=== PATIENT | female | born 1990 | race Caucasian/White ===

== ENCOUNTER 2020-02-14 10:06 | Inpatient (IN) ==
[2020-02-14] MEDS ORDERED: Buffered Lidocaine 1% SYRIN 1 ml INTRADERM ONE (10:17)
[2020-02-14] MEDS ORDERED: Lactated Ringers 1000 ml BAG 1,000 ML IV ONE (10:17)
[2020-02-14] MEDS ORDERED: Carboprost Tromethamine 250 mcg 1 ml VIAL ONE (10:54)
[2020-02-14] MEDS ORDERED: Oxytocin in LR 20 UNITS/1,000 ML BAG IVPB ONE (10:54)
[2020-02-14] MEDS ORDERED: Lactated Ringers 1000 ml BAG 1,000 ML IV SCH ×2 (11:00→12:00)
[2020-02-14] MEDS ORDERED: Glycerin ADULT 2.4 gm SUPP PR PRN (11:45)
[2020-02-14] MEDS ORDERED: Oxytocin in LR 20 UNITS/1,000 ML BAG IVPB SCH (12:00)
[2020-02-14 12:27] LABS: Hematocrit 40 % (35-47); Hemoglobin 13.4 g/dL (12.0-16.0); Mean Corpuscular HGB Conc 34 g/dL (31-36); Mean Corpuscular Hemoglobin 30 pg (27-31); Mean Corpuscular Volume 90 fL (80-97); Mean Platelet Volume 11.7 fL (7.4-10.4); Platelet Count 263 10^3/uL (150-450); Red Cell Distribution Width 14 % (10-15); White Blood Count 28.5 10^3/uL (3.5-10.8)
[2020-02-14] MEDS: Witch Hazel PAD JAR TOPICAL PRN (13:22)
[2020-02-14] MEDS: Dibucaine 1% OINT 28.35 GM TUBE PR PRN (13:22)
[2020-02-14 13:36] LABS: ABS Lymphocytes 1.2 10^3/ul (1.0-4.8); ABS Monocytes 1.3 10^3/ul (0-0.8); Lymphocyte % 4.3 %
[2020-02-14] MEDS ORDERED: Lidocaine 1% VIAL 10 MG/ML VIAL ONE (14:49)
[2020-02-14 21:26] LABS: Urine Benzodiazepine Screen None Detected (None Detect); Urine Cannabinoids Screen None Detected (None Detect); Urine Opiates Screen None Detected (None Detect)
[2020-02-15 07:40] LABS: ABS Basophils 0.1 10^3/ul (0-0.2); ABS Lymphocytes 2.3 10^3/ul (1.0-4.8); ABS Monocytes 1.2 10^3/ul (0-0.8); ABS Neutrophils 12.1 10^3/ul (1.5-7.7); Eosinophil % 0.1 %; Hematocrit 31 % (35-47); Hemoglobin 10.5 g/dL (12.0-16.0); Lymphocyte % 14.8 %; Mean Corpuscular HGB Conc 35 g/dL (31-36); Mean Corpuscular Hemoglobin 31 pg (27-31); Mean Corpuscular Volume 90 fL (80-97); Mean Platelet Volume 10.6 fL (7.4-10.4); Platelet Count 175 10^3/uL (150-450); Red Blood Count 3.38 10^6 /uL (3.70-4.87); Red Cell Distribution Width 14 % (10-15); White Blood Count 15.6 10^3/uL (3.5-10.8)
[2020-02-15] MEDS: Dibucaine 1% OINT 28.35 GM TUBE PR PRN (19:42)
[2020-02-15] MEDS: Witch Hazel PAD JAR TOPICAL PRN (19:42)
[2020-02-16] MEDS ORDERED: Cyclobenzaprine 5 mg TAB (NF) PO PRN (19:07)
[2020-02-16] MEDS: Witch Hazel PAD JAR TOPICAL PRN (20:12)
[2020-02-16] MEDS: Dibucaine 1% OINT 28.35 GM TUBE PR PRN (20:12)
[2020-02-17 10:01] VITALS: BP 132/78
== END 2020-02-17 19:45 | disposition home or self-care (01) | DRG 560 ==
LOC: MCHOBOUT 10:06 → MCHOB 10:13
PROVIDERS: ADMIT Obstetrics & Gynecology; ATTEND Obstetrics & Gynecology